=== PATIENT | female | born 1990 ===

== ENCOUNTER 2018-02-01 18:49 | Emergency (ER) | payer SELFPAY ==
[2018-02-01 19:32] VITALS: BP 122/76; PULSE 78; RESP 20; TEMP 98.7; O2SAT 100
[2018-02-01 19:54] LABS: HCG,QUALITATIVE URINE POSITIVE (NEGATIVE)
[2018-02-01 19:56] LABS: SQUAMOUS EPITHIAL 1 /hpf (0-5); URINE BACTERIA OCC (<OCC); URINE BILIRUBIN NEGATIVE (NEGATIVE); URINE BLOOD NEGATIVE (NEGATIVE); URINE CLARITY Clear (Clear); URINE COLOR Colorless (YELLOW); URINE GLUCOSE (UA) NORMAL (Normal); URINE LEUKOCYTE ESTERASE NEG Leu/uL (Negative); URINE PROTEIN NEGATIVE (NEGATIVE); URINE UROBILINOGEN NORMAL mg/dL (0.2-1.0)
--- NOTE | 2018-02-01 20:27 | C.PDOC ---
History Of Present Illness 27 year old female presents to the ER requesting an appointment. Patient is 5 weeks , she had a home test done which was positive and discussed the results with her boyfriend, however, since then she has not been able to get in contact with him. Patient states she cannot raise a child on her own and is requesting to be evaluated by an OB. Contrary to triage , patient denies any pain, vaginal bleeding, discharge or other symptoms. Time Seen by Provider: 02/01/18 19:39 Chief Complaint (Nursing): Abdominal Pain History Per: Patient History/Exam Limitations: no limitations Associated Symptoms: denies: Fever, Chills, Nausea, Vomiting, Diarrhea, Urinary Symptoms Recent travel outside of the [place]: No Abnormal Vaginal Bleeding: No Past Medical History Reviewed: Historical Data, Nursing Documentation, Vital Signs Vital Signs: Last Vital Signs Temp 98.7 F 02/01/18 19:27 Pulse 78 02/01/18 19:27 Resp 20 02/01/18 19:27 BP 122/76 02/01/18 19:27 Pulse Ox 100 02/02/18 00:13 Family History: States: Unknown Family Hx - Social History Hx Alcohol Use: No Hx Substance Use: No - Immunization History Hx Tetanus Toxoid Vaccination: No Hx Influenza Vaccination: No Hx Pneumococcal Vaccination: No Review Of Systems Constitutional: Negative for: Fever, Chills Gastrointestinal: Negative for: Nausea, Vomiting, Abdominal Pain Genitourinary: Negative for: Dysuria, Hematuria, Vaginal Bleeding Physical Exam - Physical Exam Appears: Non-toxic, No Acute Distress Skin: Normal Color, Warm, Dry Head: Atraumatic, Normacephalic Eye(s): bilateral: Normal Inspection Oral Mucosa: Moist Cardiovascular: Rhythm Regular Respiratory: Normal Breath Sounds, No Rales, No Rhonchi, No Wheezing Neurological/Psych: Oriented x3, Normal Speech ED Course And Treatment - Laboratory Results Urine POC: Positive O2 Sat by Pulse Oximetry: 100 (Room air) Pulse Ox Interpretation: Normal Progress Note: Urinalysis and HCG ordered in the ER which confirms , patient discharged home with instructions [facility]. Disposition Counseled Patient/Family Regarding: Diagnosis, Need For Followup - Disposition [facility]Outside[facility] [Outside] [facility] [Outside] Disposition: HOME/ ROUTINE Disposition Time: 20:24 Condition: STABLE Additional Instructions: Please follow up in [employer] [facility] Return to ER if worse Instructions: Screenings Forms: [employer] (German) - Clinical Impression Clinical Impression: Positive urine test - PA / EXECUTIVE DIRECT[employer] / Resident Statement MD/DO has reviewed & agrees with the documentation as recorded. - Scribe Statement The provider has reviewed the documentation as recorded by the Scribe Deniz Pfeiffer All medical record entries made by the Mckinleyibe were at my direction and personally dictated by me. I have reviewed the chart and agree that the record accurately reflects my personal performance of the history, physical exam, medical decision making, and the department course for this patient. I have also personally directed, reviewed, and agree with the discharge instructions and disposition.
== END 2018-02-01 20:46 | disposition home or self-care (01) ==
LOC: C.ER 18:49
DX: Z32.01 Encounter for pregnancy test, result positive (principal)